=== PATIENT | female | born 1950 | race Caucasian/White ===

== ENCOUNTER 2019-11-20 01:33 | Emergency (ER) | payer MEDICARE, OTHER ==
[~2019-11-20] VITALS: Ht 162.6 cm; Wt 74.8 kg
--- NOTE | 2019-11-20 01:50 | NUR ---
PT TAKEN TO CT
--- NOTE | 2019-11-20 01:50 | NUR ---
Jerry paris in [facility] - 11/20/19 at 0203 by ALISA PT TAKEN TO CT
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
--- NOTE | 2019-11-20 01:55 | NUR ---
PT TAKEN TO CT
--- NOTE | 2019-11-20 02:00 | NUR ---
TEA DISPATCHED, REPORT FILED. CASE #[id number]
--- NOTE | 2019-11-20 02:03 | NUR ---
PT BACK FROM CT
[2019-11-20] MEDS ORDERED: MORPHINE SULFATE INJ 4 MG/ML DISP.SYRIN ONE (02:22)
[2019-11-20] MEDS ORDERED: ONDANSETRON HCL/PF 4 MG/2 ML VIAL ONE (02:22)
[2019-11-20] MEDS ORDERED: MORPHINE SULFATE INJ 2 MG/ML DISP.SYRIN IM ONE (02:30)
[2019-11-20] MEDS ORDERED: ONDANSETRON HCL/PF 4 MG/2 ML VIAL IM ONE (02:30)
--- NOTE | 2019-11-20 02:47 | NUR ---
PT TAKEN TO CT
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
[2019-11-20 07:36] VITALS: BP 121/57
--- NOTE | 2019-11-20 07:36 | NUR ---
Patient discharged to home in stable condition. Written and verbal after care instructions given. Patient verbalizes understanding of instruction.
== END 2019-11-20 07:36 | disposition home or self-care (01) ==
LOC: EDBD 01:37 → ER 01:37
DX: S00.83XA Contusion of other part of head, initial encounter (principal); I10 Essential (primary) hypertension; Y00.XXXA Assault by blunt object, initial encounter; Y93.89 Activity, other specified; Y92.89 Other specified places as the place of occurrence of the external cause; Y99.8 Other external cause status
CPT/HCPCS: 70450; 70486; 96372 ×2; 99284; J2270; J2405